=== PATIENT | female | born 1950 | race Caucasian/White ===

== ENCOUNTER 2016-12-02 10:08 | Outpatient (CLI) | payer MEDICARE, OTHER ==
--- NOTE | 2016-12-02 11:37 | MMO ---
BILATERAL SCREENING MAMMOGRAM: DATE: 12/02/16 HISTORY: 66-year-old female for screening mammography. COMPARISON: 10/23/15, 05/17/14, 04/29/13. FINDINGS: Bilateral MLO and CC views of the breasts show scattered fibroglandular breast tissue. Postsurgical changes are seen in the right breast and the right breast is smaller than the left. Benign-appearing calcifications are seen at the biopsy site of the breasts. There is no evidence of suspicious mass, suspicious cluster of microcalcifications, or area of architectural distortion. Interpretation of this mammogram was performed with the assistance of computer-aided detection. IMPRESSION: BIRADS 2: Benign Finding(s) Annual screening mammography is recommended. POS: DANNA
== END 2016-12-02 10:09 | disposition home or self-care (01) ==
LOC: SCSMAMMO 10:08
PROVIDERS: ATTEND Obstetrics & Gynecology
DX: Z12.31 Encounter for screening mammogram for malignant neoplasm of breast (principal)
CPT/HCPCS: 77067; G0202

== ENCOUNTER 2019-01-27 20:39 | Inpatient (IN) | payer MEDICARE, OTHER ==
[2019-01-27 21:09] LABS: #Monocytes 0.2 thou/uL (0.11-0.59); #Neutrophils 5.2 thou/uL (1.40-6.50); %Basophils 0.1 % (0.0-1.0); %Eosinophils 0.6 % (0.0-10.0); %Lymphocytes 15.3 % (21.0-51.0); %Monocytes 3.3 % (0.0-10.0); %Neutrophils 80.7 % (42.0-75.0); Hemoglobin 13.1 g/dL (12.0-16.0); Mean Corpuscular HGB CONC 33.9 g/dL (32.0-36.0); Mean Corpuscular Hemoglobin 32.3 pg (27.0-31.0); Mean Corpuscular Volume 95.4 fL (78.0-98.0); Mean Platelet Volume 7.1 fL (7.4-10.4); Platelet Count 223 thou/uL (130-400); RBC Distribution Width 12.1 % (11.5-14.5); Red Blood Cell (RBC) Count 4.05 mill/uL (4.20-5.40); White Blood Cell (WBC) Count 6.4 thou/uL (4.8-10.8)
[2019-01-27 21:14] LABS: INR-International Normal Ratio 1.2; PTT 36.4 SEC (22.9-36.1); Prothrombin Time 15.4 SEC (12.0-14.7)
[2019-01-27 21:28] LABS: ALT (SGPT) 19 U/L (8-55); AST (SGOT) 24 U/L (5-34); Albumin 3.3 g/dL (3.4-4.8); Alkaline Phosphatase 41 U/L (40-110); Anion Gap 11 mmol/L (10-20); BUN (Urea Nitrogen) 13 mg/dL (9.8-20.1); Bilirubin, Total 0.5 mg/dL (0.2-1.2); Calc. Creatinine Clearance 0 mL/min (70-130); Calcium 8.2 mg/dL (7.8-10.44); Carbon Dioxide 23 mmol/L (23-31); Chloride 107 mmol/L (98-107); Estimated GFR-MDRD 75; Globulin 2.9 g/dL (2.4-3.5); Glucose 99 mg/dL (80-115); Lipase 58 U/L (8-78); Potassium 3.6 mmol/L (3.5-5.1); Protein, Total 6.2 g/dL (6.0-8.3); Sodium 137 mmol/L (136-145)
[2019-01-27 21:53] LABS: CKMB 2.7 ng/mL (0-6.6)
--- NOTE | 2019-01-27 22:09 | PDOC.FPRHP ---
- Allergies/Adverse Reactions Allergies Allergy/AdvReac Type Severity Reaction Status Date / Time doxycycline Allergy Mild Vomiting Verified 01/27/19 22:10 - Home Medications Medication Instructions Recorded Confirmed Type Aspirin [Ecotrin] 81 mg PO DAILY 01/27/19 01/27/19 History Lansoprazole 15 tab PO DAILY 01/27/19 01/27/19 History Levothyroxine Sodium [Synthroid] 75 mcg PO DAILY 01/27/19 01/27/19 History - History PMHx: Hypothyroidism PSHx: Breast lumpectomy, cancerous. S/p chemo and radiation. (20yrs ago) FHx: Non-contributory Social: Denies alcohol, tobacco or illicit drug use. Allergic to Doxycycline. - Review of Systems General: reports: weight/appetite/sleep changes. denies: fever/chills, night sweats Eyes: denies: eye pain, vision changes ENT: denies: nasal congestion, rhinorrhea Respiratory: denies: cough, congestion, shortness of breath Cardiovascular: denies: chest pain, palpitation, edema, paroxysmal nocturnal dyspnea, orthopnea Gastrointestinal: reports: nausea, vomiting, diarrhea, abdominal pain. denies: constipation, GI bleeding Genitourinary: denies: incontinence, dysuria, polyuria Skin: denies: rashes, lesions, jaundice Musculoskeletal: denies: pain, tenderness, stiffness Neurological: denies: numbness, syncope, weakness - Vital signs BP: [] HR: [] RR: [] Tmax: [] Pox: []% on [] Wt: [] - Physical Exam Constitutional: NAD, awake, alert and oriented, well developed HEENT: normocephalic and atraumatic, PERRLA, EOMI, conjunctiva clear, grossly normal vision (wears glasses), grossly normal hearing, MMM Neck: supple, trachea midline FMR H&P: Results - Labs Result Diagrams: 01/27/19 20:57 01/27/19 20:57 Lab results: WBC 6.4 thou/uL (4.8-10.8) 01/27/19 20:57 Hgb 13.1 g/dL (12.0-16.0) 01/27/19 20:57 Hct 38.7 % (36.0-47.0) 01/27/19 20:57 MCV 95.4 fL (78.0-98.0) 01/27/19 20:57 Plt Count 223 thou/uL (130-400) 01/27/19 20:57 Neutrophils % 80.7 % (42.0-75.0) H 01/27/19 20:57 Sodium 137 mmol/L (136-145) 01/27/19 20:57 Potassium 3.6 mmol/L (3.5-5.1) 01/27/19 20:57 Chloride 107 mmol/L (98-107) 01/27/19 20:57 Carbon Dioxide 23 mmol/L (23-31) 01/27/19 20:57 BUN 13 mg/dL (9.8-20.1) 01/27/19 20:57 Creatinine 0.76 mg/dL (0.6-1.1) 01/27/19 20:57 Glucose 99 mg/dL (80-115) 01/27/19 20:57 Calcium 8.2 mg/dL (7.8-10.44) 01/27/19 20:57 Total Bilirubin 0.5 mg/dL (0.2-1.2) 01/27/19 20:57 AST 24 U/L (5-34) 01/27/19 20:57 ALT 19 U/L (8-55) 01/27/19 20:57 Alkaline Phosphatase 41 U/L (40-110) 01/27/19 20:57 CK-MB (CK-2) 2.7 ng/mL (0-6.6) 01/27/19 20:57 Serum Total Protein 6.2 g/dL (6.0-8.3) 01/27/19 20:57 Albumin 3.3 g/dL (3.4-4.8) L 01/27/19 20:57 Lipase 58 U/L (8-78) 01/27/19 20:57 FMR H&P: Upper Level - Plan Date/Time: 01/27/192205 PCP: [facility] HPI: Patient has been experiencing nausea, vomiting, and diarrhea that started 1am last night. This morning she continued to have symptoms and began to feel dehydrated so she went to the ED in [place]. She has history of diverticulitis and believed her symptoms were originally related to that. She denies CP on exertion, cough, ,or SOB. She denies chest pain, but was having pain in her epigastric region. Currently feeling minor "gas pain" in her abdomen. She states that the zofran and IV fluids resolved her symptoms. She has no significant past medical history except for hypothyroidism. Recently saw PCP for annual exam and was in good health. PMH: Hypothyroid, Breast Cancer PSH: Lumpectomy 99 Meds: see chart Allergies: doxycycline Soc Hx: no MARLEN Fm hx: denies fm hx of heart disease REVIEW OF SYSTEMS: Gen: no fever, chills, or sweats Neuro: denies headache Eyes: no visual changes ENT: no hearing changes, no sore throat, no congestion Resp: denies cough, SOB Card: denies murmurs, rubs, gallups GI: see hpi Heme: no easy bruising/bleeding, no blood thinners Skin: no rash, no erythema Vitals: BP: 104/50, MAP: 68, Pulse: 73, Resp: 20, Temp: 99.2 (Oral), Pain: 0, O2 sat: 94 on (Room Air), Time: 01/27/2019 20:42. PHYSICAL EXAMINATION: General: NAD, alert and oriented x3 HEENT: PERRLA, EOMI, normal sclera, oropharynx without erythema or exudate Neck: Supple. Full ROM. Heart/Cardiovascular System: RRR, Cap refill < 3 seconds, no rub, no murmur Lungs/Respiratory System: CTA-B, no resp distress Abdomen/Gastro-Intestinal System: no abdominal tenderness, normal bowel sounds Extremities: Warm extremities. Trace edema Neuro: No gross deficits appreciated. CN 2-12 grossly intact Psychiatry: Awake, Alert and cooperative with exam Skin: No lesions, rashes, or ulcers Musculoskeletal: Full ROM A/P: # NSTEMI - Trop 0.37-> 0.48 -> 0.56, Cr 0.78 - Therapeutic lovenox at 1856 at [facility] - EKG t-flattening V3-6, no ST changes, or q wave - HEART: 5 - AM lipid panel - Has not seen mobile device engineer in past, requests Rianna # Hypothyroidism - home meds Fluids: NS Code: full PPx: Lovenox Dispo: 1-2 days
[2019-01-27] MEDS ORDERED: Nitroglycerin 0.4 MG TAB (25 Tab Bottle) SL PRN (22:40)
[2019-01-28 00:13] LABS: Critical Call Chem Troponin I RESULT DECREASING; Troponin I 0.438 ng/mL (< 0.028)
[2019-01-28] MEDS: Sodium Chloride 0.9% 1,000 ML IV SCH ×3 (01:27→13:20)
[2019-01-28] MEDS: Acetaminophen 325 MG TAB PO PRN (01:33)
[2019-01-28 01:56] VITALS: BMI 30.2
[2019-01-28 02:57] LABS: #Basophils 0.1 thou/uL (0.0-0.2); #Monocytes 0.3 thou/uL (0.11-0.59); #Neutrophils 3.6 thou/uL (1.40-6.50); %Basophils 1.2 % (0.0-1.0); %Eosinophils 0.8 % (0.0-10.0); %Lymphocytes 19.5 % (21.0-51.0); %Monocytes 5.3 % (0.0-10.0); %Neutrophils 73.3 % (42.0-75.0); Hemoglobin 13.1 g/dL (12.0-16.0); Mean Corpuscular HGB CONC 34.2 g/dL (32.0-36.0); Mean Corpuscular Hemoglobin 32.6 pg (27.0-31.0); Mean Corpuscular Volume 95.4 fL (78.0-98.0); Mean Platelet Volume 6.9 fL (7.4-10.4); Platelet Count 213 thou/uL (130-400); RBC Distribution Width 12.1 % (11.5-14.5); Red Blood Cell (RBC) Count 4.02 mill/uL (4.20-5.40); White Blood Cell (WBC) Count 4.9 thou/uL (4.8-10.8)
[2019-01-28 03:24] LABS: Anion Gap 10 mmol/L (10-20); BUN (Urea Nitrogen) 13 mg/dL (9.8-20.1); Calc. Creatinine Clearance 94 mL/min (70-130); Calcium 8.4 mg/dL (7.8-10.44); Carbon Dioxide 26 mmol/L (23-31); Cardiac Risk 3.7 (Less than 4.5); Chloride 107 mmol/L (98-107); Cholesterol 132 mg/dl (< 200 Desired); Estimated GFR-MDRD 74; Glucose 95 mg/dL (80-115); HDL Cholesterol 36 mg/dL (>60 Neg Risk); LDL Cholesterol, Calculated 81 mg/dL; Potassium 3.3 mmol/L (3.5-5.1); Sodium 140 mmol/L (136-145); Triglycerides 76 mg/dL (Less than 150)
[2019-01-28 03:36] LABS: Critical Call Chem Troponin I RESULT DECREASING; Troponin I 0.409 ng/mL (< 0.028)
[2019-01-28] MEDS: Levothyroxine Sodium 75 MCG TAB PO SCH (05:39)
[2019-01-28] MEDS: Enoxaparin Sodium 100 MG/ML SYRINGE SC SCH ×2 (06:33→18:44)
[2019-01-28] MEDS ORDERED: Potassium Chloride 40 MEQ in Premix Bag 1 BAG IVPB ONE (06:54)
[2019-01-28 07:58] LABS: Hemoglobin A1c 5.4 % (4.0-6.0)
[2019-01-28] MEDS: Aspirin 81 mg Enteric Coated Tablet PO SCH (08:39)
[2019-01-28] MEDS: Potassium Chloride 20 MEQ in Premix Bag 1 BAG IVPB SCH ×2 (08:40→11:17)
[2019-01-28] MEDS ORDERED: Aspirin 325 mg Enteric Coated Tablet PO SCH (09:00)
--- NOTE | 2019-01-28 09:14 | PDOC.FM ---
Addendum entered and electronically signed by Britney Leroy MD 01/28/19 11:23 : A/P: -Not type I but type II NSTEMI Addendum entered and electronically signed by Britney Leroy MD 01/28/19 10:47 : Addendum to plan: NSTEMI -th lovenox Original Note: - Subjective Subjective: Chest pain is resolved. No nausea/vomiting. Feels well. - Objective MAR Reviewed: Yes Vital Signs & Weight: Vital Signs (12 hours) Temp Pulse Resp BP Pulse Ox 01/28/19 03:09 98 F 66 14 93/51 L 92 L 01/28/19 01:05 98 01/28/19 00:55 98.3 F 69 20 99/55 L 98 Weight Weight 87.498 kg I&O: 01/27/19 01/28/19 01/29/19 06:59 06:59 06:59 Intake Total 720 Output Total 200 Balance 520 Result Diagrams: 01/28/19 02:49 01/28/19 02:49 Phys Exam - Physical Examination Constitutional: NAD HEENT: PERRLA, moist MMs Respiratory: no wheezing, clear to auscultation bilateral Cardiovascular: RRR, no significant murmur Gastrointestinal: soft, non-tender Musculoskeletal: no edema Neurological: non-focal, moves all 4 limbs Dx/Plan (1) NSTEMI (non-ST elevated myocardial infarction) Code(s): I21.4 - NON-ST ELEVATION (NSTEMI) MYOCARDIAL INFARCTION Status: Acute (2) Hypothyroidism Code(s): E03.9 - HYPOTHYROIDISM, UNSPECIFIED Status: Acute - Plan Plan: NSTEMI, Type I -New T wave changes in inferolateral leads, trops 0.43 -> 0.40 -Patient asx, stable -Cardiology on board, further recs appreciated -NPO in anticipation of further testing -SL nitrostat PRN, ASA, statin Hypothyroidism -continue home meds dvt ppx: lovenox Dispo: >[address] Pabon Addendum - Attending - Attending Attestation Date/Time: 01/28/19 8220 I personally evaluated the patient and discussed the management with Dr. Leroy I agree with the History, Examination, Assessment and Plan documented above with any addition or exceptions noted below.Patient for further evaluation by Cardiology appreciate recommendations. Patient and family aware of plans.
[2019-01-28] MEDS ORDERED: ADENOSINE 60 MG/20 ML VIAL ONE (16:26)
--- NOTE | 2019-01-28 18:39 | NM ---
NM Cardiac Stress W EF WF History: Chest pain Comparison: None. Findings: Stress and rest performed after the intravenous administration of 29.4 and 10.5 mCi technet ium 99m sestamibi, respectively. There is a small lateral wall scar with low-grade obdulia-infarct ischemia. There is mild hypokinesia of the lateral wall. Adequate left ventricular uptake of radiotracer. The calculated ejection fraction is 56%. Impression: Small left lateral wall scar with low-grade obdulia-infarct ischemic change and mild lateral wall hypokinesia.
--- NOTE | 2019-01-28 19:09 | CON ---
DATE OF CONSULTATION: 01/28/2019 INDICATION FOR CONSULTATION: A 68-year-old female with indeterminate cardiac enzymes with a history of nausea, vomiting, and diarrhea. HISTORY OF PRESENT ILLNESS: This very unfortunate 68-year-old female has had bouts of diverticulitis in the past. She woke the night before last having some abdominal pain and had diarrhea. Then, she developed some chest tightness or chest heaviness and had some nausea and vomiting. She then presented to the emergency room, and cardiac enzymes were obtained. She has had 5 sets of cardiac enzymes done so for. The first one was 0.37. She did peak up to 0.56 and is back down to 0.049. This appears to be a [id number] elevation myocardial infarction, most likely type 2 myocardial infarction which is associated with demand ischemia, most likely associated with her nausea, vomiting, and diarrhea. She has had no previous cardiac history in the past. She has no history of hypertension, diabetes, or hypercholesterolemia. She did smoke in the past, but stopped many many years ago. She smoked about a half a pack a day from the age of 16 to 26. She did have 1 brother, who had myocardial infarction in his 50s, and also, her mother had some history of heart disease, but at age 83, she had some chest tightness or pain, but was undiagnosed as to exactly what she had. So, this lady has a history of these flare-ups with her diverticulitis about 2 to 3 times a year. Otherwise, she has remained relatively healthy. She is able to walk for 2 miles a day without symptoms. Her medications did not indicate she was on any medicines prior to admission for any cardiac problems. PAST MEDICAL HISTORY: Significant for hypothyroidism. She has a history of herpes zoster in the past. She has had breast cancer. She had a lumpectomy 20 years ago. She had a history of chemo and radiation therapy. She has a history of diverticulitis. She has the pain occasionally in the left lower quadrant. FAMILY HISTORY: Noncontributory except for what is noted in the history above. SOCIAL HISTORY: No history of alcohol or tobacco abuse. She continues to exercise. 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 ALLERGIES: SHE IS ALLERGIC TO DOXYCYCLINE. MEDICATIONS: Her medications at home included Synthroid as well as aspirin, and I believe she also was taking occasional H2 blockers for her possible reflux. REVIEW OF SYSTEMS: A 12-point review of systems is unremarkable except for what was noted in the history of present illness. PHYSICAL EXAMINATION: GENERAL: Reveals a well-developed, well-nourished female, who is in no acute distress. VITAL SIGNS: Her blood pressure is 93/51. She is afebrile. Heart rate 66 and regular. O2 saturation 92% with respiratory rate of 16. HEENT: Shows the head to be normocephalic and atraumatic. NECK: Carotid pulses are present. There were no bruits. CHEST: Clear to auscultation without rales, rhonchi, or wheezing. CARDIOVASCULAR: Reveals a regular rate and rhythm with normal S1 and S2. There is no S3 or S4. There were no significant murmurs, heaves, thrills, bruits, or rubs noted. ABDOMEN: She does have some mild tenderness in the left lower quadrant. EXTREMITIES: Otherwise, pedal pulses are present. There is no lower extremity edema. NEUROLOGIC: The patient appears to be fully intact. There were no other significant abnormalities. SKIN: Warm and dry. IMPRESSION: 1. Elderly female with an episode of diverticulosis associated with nausea and vomiting, but did have some chest discomfort and indeterminate cardiac enzymes. Given her age, we will proceed with echocardiogram for evaluation of left ventricular systolic function. We would also advise stress testing in this lady who did have some chest discomfort. She has almost no risk factors for coronary artery disease except some history of tobacco abuse over 20 years ago. She does remain active. It is unlikely she has significant coronary artery disease, and she is able to walk 2 miles a day without symptoms. 2. History of hypothyroidism. This will be continued to be treated by the [facility]. 3. History of diverticulosis. This also will be treated by the primary service. Job ID: [id number]
[2019-01-28] MEDS: Atorvastatin Calcium 40 MG TAB PO SCH (20:23)
[2019-01-28] MEDS ORDERED: Atorvastatin Calcium 40 MG TAB PO SCH (21:00)
[2019-01-28] MEDS: Ondansetron PF 4 MG/2 ML Vial IVP PRN (22:09)
[2019-01-29] MEDS: Sodium Chloride 0.9% 1,000 ML IV SCH ×2 (03:25→14:32)
[2019-01-29] MEDS ORDERED: Mag-Al 1200 mg/1200 mg/30 ML UDCUP PO SCH (04:30)
--- NOTE | 2019-01-29 05:25 | PDOC.FM ---
- Subjective Subjective: NAEO. Had episode of "reflux" pain last night, improved with maalox. No chest pain/pressure right now. No complaints or concerns. No n/v, no abd pain - Objective MAR Reviewed: Yes Vital Signs & Weight: Vital Signs (12 hours) Temp Pulse Resp BP Pulse Ox 01/29/19 03:34 98.9 F 62 16 119/58 L 92 L 01/28/19 20:00 96.6 F L 61 20 133/65 96 01/28/19 18:00 97.8 F 66 18 136/67 98 Weight Weight 88.541 kg I&O: 01/27/19 01/28/19 01/29/19 06:59 06:59 06:59 Intake Total 1960 Output Total 1800 Balance 160 Result Diagrams: 01/28/19 02:49 01/28/19 02:49 Phys Exam - Physical Examination Constitutional: NAD HEENT: PERRLA, TM's clear Respiratory: no wheezing, clear to auscultation bilateral Cardiovascular: RRR, no significant murmur Gastrointestinal: soft Musculoskeletal: no edema Neurological: non-focal, moves all 4 limbs Psychiatric: normal affect, A&O x 3 Skin: cap refill <2 seconds Dx/Plan (1) NSTEMI (non-ST elevated myocardial infarction) Code(s): I21.4 - NON-ST ELEVATION (NSTEMI) MYOCARDIAL INFARCTION Status: Acute (2) Hypothyroidism Code(s): E03.9 - HYPOTHYROIDISM, UNSPECIFIED Status: Acute - Plan Plan: NSTEMI -New T wave changes in inferolateral leads from admission to this morning- previously T wave inversions in III, avF now diffuse.Pt with no pain currentl. -NMST: Small left lateral wall scar with low grade obdulia infarct ischemic change & mild lateral wall hypokinesia. Part 2 to be scheduled today however will touch base with cardiology-in light of new T wave changes may need consideration of cardiac cath -Cards on board, recs appreciated -Th lovenox, SL nitrostat PRN, ASA, statin Hypothyroidism -continue home meds dvt ppx: th. lovenox Dispo: >[address] Palumbo Addendum - Attending - Attending Attestation Date/Time: 01/29/19 2259 I personally evaluated the patient and discussed the management with Dr. Leroy. I agree with the History, Examination, Assessment and Plan documented above with any addition or exceptions noted below. Patient with with suspected NSTEMI type 2 due to acute illness. She is currently having some chest discomfort that she has not had previously. She is undergoing stress testing per Cardiology. Will reach out and discuss with them. She also likely has diverticulitis, mild, but she does report some improvement in pain and no diarrhea since yesterday. Continue to monitor and await further cardiology recs after stress result.
[2019-01-29] MEDS: Levothyroxine Sodium 75 MCG TAB PO SCH (06:23)
[2019-01-29] MEDS: Enoxaparin Sodium 100 MG/ML SYRINGE SC SCH ×3 (07:16→20:10)
[2019-01-29 07:58] LABS: CKMB 5.1 ng/mL (0-6.6)
[2019-01-29] MEDS: Aspirin 81 mg Enteric Coated Tablet PO SCH (09:25)
--- NOTE | 2019-01-29 15:44 | PDOC.CPN ---
- Subjective Date: 01/29/19 Time: 15:48 Interval history: The pt seen and examined. No overnight events. No cardiac complaints. - Objective Allergies/Adverse Reactions: Allergies Allergy/AdvReac Type Severity Reaction Status Date / Time doxycycline Allergy Mild Vomiting Verified 01/27/19 22:10 Visit Medications: Current Medications Acetaminophen (Tylenol) 650 mg PO Q4H PRN PRN Reason: Headache/Fever/Mild Pain (1-3) Last Admin: 01/28/19 01:33 Dose: 650 mg Aspirin (Ecotrin) 81 mg PO DAILY [facility] Last Admin: 01/29/19 09:25 Dose: 81 mg Atorvastatin Calcium (Lipitor) 80 mg PO HS [facility] Last Admin: 01/28/19 20:23 Dose: 80 mg Enoxaparin Sodium (Lovenox) 90 mg SC Q12HR [facility] Sodium Chloride (Normal Saline 0.9%) 1,000 mls @ 100 mls/hr IV .Q10H [facility] Last Admin: 01/29/19 14:32 Dose: 1,000 mls Levothyroxine Sodium (Synthroid) 75 mcg PO 0600 [facility] Last Admin: 01/29/19 06:23 Dose: 75 mcg Nitroglycerin (Nitrostat) 0.4 mg SL Q5MIN PRN PRN Reason: Chest Pain Ondansetron HCl (Zofran) 4 mg IVP Q6H PRN PRN Reason: Nausea/Vomiting Last Admin: 01/28/19 22:09 Dose: 4 mg Pantoprazole Sodium (Protonix) 40 mg PO DAILY [facility] Last Admin: 01/29/19 09:25 Dose: 40 mg Sodium Chloride (Flush - Normal Saline) 10 ml IVF PRN PRN PRN Reason: Saline Flush Vital Signs & Weight: Vital Signs Temp Pulse Resp BP Pulse Ox 01/29/19 15:28 97.7 F 52 L 16 131/59 L 98 01/29/19 11:34 97.9 F 57 L 16 123/72 98 01/29/19 07:15 98.1 F 59 L 16 123/63 96 Weight 195 lb 3.2 oz - Physical Exam General: alert & oriented x3 HEENT: mucus membranes moist Neck: supple neck Cardiac: regular rate and rhythm, S1/S2 Lungs: clear to auscultation Neuro: cranial nerve 2-12 intact Skin: clear Musculoskeletal: normal range of motion - Labs Result Diagrams: 01/28/19 02:49 01/28/19 02:49 Troponin/CKMB CK-MB (CK-2) 5.1 ng/mL (0-6.6) 01/29/19 06:57 Troponin I 0.383 ng/mL (< 0.028) H* 01/29/19 06:57 - Telemetry Sinus rhythms and dysrhythmias: sinus rhythm - Assessment/Plan Assessment/Plan: 1. Chest pain with abnormal stress test result - possible LHC on Thursday; will start NTG patch for intermittent chest tightness. On ASA and Statin 2. Hypothyroidism 3. hx of Breast cancer with lumpectomy and chemo and radiation 4. Diverticulitis MAR reviewed Pt. seen and eval. by me. I agree with the A/P by the PERFORMANCE IMPROVEMENT CONSULTANT. Chest clear. RRR. marcymays
[2019-01-29] MEDS ORDERED: Nitroglycerin 2% Ointment 1 INCH/1 GM Packet TOP SCH (16:30)
[2019-01-29] MEDS: Atorvastatin Calcium 40 MG TAB PO SCH (20:10)
[2019-01-29] MEDS: Nitroglycerin 2% Ointment 1 INCH/1 GM Packet TOP SCH (21:45)
[2019-01-30] MEDS: Ondansetron PF 4 MG/2 ML Vial IVP PRN (03:30)
[2019-01-30] MEDS: Acetaminophen 325 MG TAB PO PRN (03:36)
[2019-01-30] MEDS: Nitroglycerin 2% Ointment 1 INCH/1 GM Packet TOP SCH ×3 (05:43→21:18)
[2019-01-30] MEDS: Levothyroxine Sodium 75 MCG TAB PO SCH (05:43)
--- NOTE | 2019-01-30 06:29 | PDOC.FM ---
- Subjective Subjective: NAEO. Chest discomfort/reflux episodes controlled with NTG patch. Able to eat apple sauce yesterday with no issues. Taking it slow. Denies diarrhea/nausea/abd pain - Objective MAR Reviewed: Yes Vital Signs & Weight: Vital Signs (12 hours) Temp Pulse Resp BP Pulse Ox 01/30/19 04:00 97.6 F 54 L 18 127/60 96 01/29/19 19:09 98.5 F 52 L 18 129/62 94 L Weight Weight 86.228 kg I&O: 01/28/19 01/29/19 01/30/19 06:59 06:59 06:59 Intake Total 1960 1490 Output Total 1800 Balance 160 1490 Result Diagrams: 01/28/19 02:49 01/28/19 02:49 Phys Exam - Physical Examination Constitutional: NAD HEENT: PERRLA, moist MMs Respiratory: no wheezing, clear to auscultation bilateral Cardiovascular: RRR, no significant murmur Gastrointestinal: soft, non-tender, no distention Musculoskeletal: no edema Neurological: non-focal, moves all 4 limbs Psychiatric: normal affect, A&O x 3 Dx/Plan (1) NSTEMI (non-ST elevated myocardial infarction) Code(s): I21.4 - NON-ST ELEVATION (NSTEMI) MYOCARDIAL INFARCTION Status: Acute (2) Hypothyroidism Code(s): E03.9 - HYPOTHYROIDISM, UNSPECIFIED Status: Acute (3) Diverticulitis Code(s): K57.92 - DVTRCLI OF INTEST, PART UNSP, W/O PERF OR ABSCESS W/O BLEED Status: Acute - Plan Plan: NSTEMI, type 2 -NMST: Small left lateral wall scar with low grade obdulia infarct ischemic change & mild lateral wall hypokinesia. -TTE: WNL -Th lovenox, SL nitrostat PRN, ASA, statin, NTG patch for intermittent chest discomfort -Cards on board, plan for [facility] on Thursday Diverticulitis -Clinically improved, no sxs thus no abx at this time but can consider if worsens -ADAT Hypothyroidism -continue home meds Hx of breast lumpectomy with radiation dvt ppx: th. lovenox Dispo: >[address] Palumbo Addendum - Attending - Attending Attestation Date/Time: 01/30/19 9967 I personally evaluated the patient and discussed the management with Dr. Leroy. I agree with the History, Examination, Assessment and Plan documented above with any addition or exceptions noted below. Patient continues to have intermittent chest discomfort. She will undergo LHC tomorrow due to abnormal stress testing. Her diverticulitis seems improved, no diarrhea, no pain, and tolerating GI soft well.
[2019-01-30] MEDS: Enoxaparin Sodium 100 MG/ML SYRINGE SC SCH ×2 (08:42→21:19)
[2019-01-30] MEDS: Aspirin 81 mg Enteric Coated Tablet PO SCH (08:42)
--- NOTE | 2019-01-30 17:21 | PDOC.CPN ---
- Subjective Date: 01/30/19 Time: 17:22 Interval history: The pt seen and examined. No overnight events. No Cardiac complaints. - Objective Allergies/Adverse Reactions: Allergies Allergy/AdvReac Type Severity Reaction Status Date / Time doxycycline Allergy Mild Vomiting Verified 01/27/19 22:10 Visit Medications: Current Medications Acetaminophen (Tylenol) 650 mg PO Q4H PRN PRN Reason: Headache/Fever/Mild Pain (1-3) Last Admin: 01/30/19 03:36 Dose: 650 mg Aspirin (Ecotrin) 81 mg PO DAILY [facility] Last Admin: 01/30/19 08:42 Dose: 81 mg Atorvastatin Calcium (Lipitor) 80 mg PO HS [facility] Last Admin: 01/29/19 20:10 Dose: 80 mg Enoxaparin Sodium (Lovenox) 90 mg SC Q12HR [facility] Last Admin: 01/30/19 08:42 Dose: 90 mg Levothyroxine Sodium (Synthroid) 75 mcg PO 0600 [facility] Last Admin: 01/30/19 05:43 Dose: 75 mcg Miscellaneous Information (Communication Order-Pharmacy) 0 each FS ONE [facility] Nitroglycerin (Nitrostat) 0.4 mg SL Q5MIN PRN PRN Reason: Chest Pain Last Admin: 01/30/19 03:36 Dose: 0.4 mg Nitroglycerin (Nitro-Bid 2% Ointment) 0.5 inch TOP Q8HR [facility] Last Admin: 01/30/19 13:41 Dose: 0.5 inch Ondansetron HCl (Zofran) 4 mg IVP Q6H PRN PRN Reason: Nausea/Vomiting Last Admin: 01/30/19 03:30 Dose: 4 mg Pantoprazole Sodium (Protonix) 40 mg PO DAILY [facility] Last Admin: 01/30/19 08:42 Dose: 40 mg Sodium Chloride (Flush - Normal Saline) 10 ml IVF PRN PRN PRN Reason: Saline Flush Vital Signs & Weight: Vital Signs Temp Pulse Resp BP Pulse Ox 01/30/19 15:10 98.0 F 67 14 138/71 97 01/30/19 11:59 97.2 F L 55 L 16 127/64 99 01/30/19 07:39 97.6 F 52 L 18 117/59 L 96 Weight 190 lb 1.6 oz - Physical Exam General: alert & oriented x3 HEENT: mucus membranes moist Neck: supple neck Cardiac: regular rate and rhythm, S1/S2 Lungs: clear to auscultation Abdomen: unremarkable Extremities: no cyanosis Skin: clear - Labs Result Diagrams: 01/28/19 02:49 01/28/19 02:49 Troponin/CKMB CK-MB (CK-2) 5.1 ng/mL (0-6.6) 01/29/19 06:57 Troponin I 0.383 ng/mL (< 0.028) H* 01/29/19 06:57 - Telemetry Sinus rhythms and dysrhythmias: sinus rhythm - Assessment/Plan Assessment/Plan: 1. Chest pain with abnormal stress test result - Plan for LHC on Thursday; will start NTG patch for intermittent chest tightness. On ASA and Statin 2. Hypothyroidism 3. hx of Breast cancer with lumpectomy and chemo and radiation 4. Diverticulitis MAR reviewed * Echo on 01/28/2019 with EF 55-60%
[2019-01-30] MEDS ORDERED: Communication Order-Pharmacy FS SCH (17:30)
[2019-01-30] MEDS: Atorvastatin Calcium 40 MG TAB PO SCH (21:18)
[2019-01-31] MEDS: Nitroglycerin 2% Ointment 1 INCH/1 GM Packet TOP SCH (05:43)
[2019-01-31] MEDS: Levothyroxine Sodium 75 MCG TAB PO SCH (05:44)
[2019-01-31] MEDS: Aspirin 81 mg Enteric Coated Tablet PO SCH (05:44)
--- NOTE | 2019-01-31 06:25 | PDOC.FM ---
Addendum entered and electronically signed by Britney Leroy MD 01/31/19 16:20 : Pt without urinary sxs-no indication to treat for lack of sxs also due to bradycardia will hold BB per dr. warren Original Note: - Subjective Subjective: No chest pain, comfortable Ate yesterday with no GI sxs - Objective MAR Reviewed: Yes Vital Signs & Weight: Vital Signs (12 hours) Temp Pulse Resp BP Pulse Ox 01/31/19 03:25 97.6 F 62 14 132/64 93 L 01/30/19 20:00 98.0 F 61 18 123/59 L 98 Weight Weight 85.304 kg I&O: 01/29/19 01/30/19 01/31/19 06:59 06:59 06:59 Intake Total 1960 1490 1460 Output Total 1800 2049 Balance 160 1490 -590 Result Diagrams: 01/31/19 09:18 01/31/19 09:18 Phys Exam - Physical Examination Constitutional: NAD HEENT: PERRLA, moist MMs Neck: full ROM Respiratory: no wheezing, clear to auscultation bilateral Cardiovascular: RRR, no significant murmur Gastrointestinal: soft, non-tender Musculoskeletal: no edema Neurological: non-focal, moves all 4 limbs Psychiatric: normal affect, A&O x 3 Dx/Plan (1) NSTEMI (non-ST elevated myocardial infarction) Code(s): I21.4 - NON-ST ELEVATION (NSTEMI) MYOCARDIAL INFARCTION Status: Acute (2) Hypothyroidism Code(s): E03.9 - HYPOTHYROIDISM, UNSPECIFIED Status: Acute (3) Diverticulitis Code(s): K57.92 - DVTRCLI OF INTEST, PART UNSP, W/O PERF OR ABSCESS W/O BLEED Status: Acute - Plan Plan: NSTEMI, type 2 -NMST: Small left lateral wall scar with low grade obdulia infarct ischemic change & mild lateral wall hypokinesia. -Troponins 0.4, TTE: WNL -Th lovenox, SL nitrostat PRN, ASA, statin, NTG patch for intermittent chest discomfort -Cards on board, plan for [facility] today Diverticulitis, Mild -Tolerating food -Abx if worsens Hypothyroidism -continue home meds Hx of breast lumpectomy with radiation dvt ppx: th. lovenox Dispo: >2 midnights, possible home today, pending cardiology clearance Discussed with Dr. Pelaez Addendum - Attending - Attending Attestation Date/Time: 01/31/19906 I personally evaluated the patient and discussed the management with Dr. Leroy I agree with the History, Examination, Assessment and Plan documented above with any addition or exceptions noted below. Admitted for NSTEMI. [facility] this AM. Awaiting results. Discussed bradycardia with patient. Denies previous hx. Asymptomatic. No causal agents. Will follow up with cards. Trend labs as needed. Possible home today if ok from cardiac standpoint. Bernardo
[2019-01-31] MEDS ORDERED: Heparin (Artline) 1,000 ML ONE (07:38)
[2019-01-31] MEDS ORDERED: Lidocaine 1% (PF) 30 ML VIAL ONE (07:38)
[2019-01-31] MEDS ORDERED: Nitroglycerin 100MG/250ML BOT 250 ML ONE (08:26)
[2019-01-31] MEDS ORDERED: Heparin 10,000 UNITS/1 ML VIAL ONE (08:26)
[2019-01-31] MEDS ORDERED: Verapamil 5 MG/2 ML VIAL ONE (08:26)
[2019-01-31] MEDS ORDERED: Midazolam HCl 2 mg/2 ml Vial ONE (08:35)
--- NOTE | 2019-01-31 09:09 | PDOC.CPN ---
- Subjective Date: 01/31/19 Time: 08:00 - Review of Systems General: denies: fever/chills Respiratory: denies: cough, congestion Cardiovascular: denies: chest pain Gastrointestinal: denies: nausea, vomiting, diarrhea Musculoskeletal: denies: pain Neurological: denies: numbness, weakness - Objective Allergies/Adverse Reactions: Allergies Allergy/AdvReac Type Severity Reaction Status Date / Time doxycycline Allergy Mild Vomiting Verified 01/27/19 22:10 Visit Medications: Current Medications Acetaminophen (Tylenol) 650 mg PO Q4H PRN PRN Reason: Headache/Fever/Mild Pain (1-3) Last Admin: 01/30/19 03:36 Dose: 650 mg Aspirin (Ecotrin) 81 mg PO DAILY [facility] Last Admin: 01/31/19 05:44 Dose: 81 mg Atorvastatin Calcium (Lipitor) 80 mg PO HS [facility] Last Admin: 01/30/19 21:18 Dose: 80 mg Levothyroxine Sodium (Synthroid) 75 mcg PO 0600 [facility] Last Admin: 01/31/19 05:44 Dose: 75 mcg Miscellaneous Information (Communication Order-Pharmacy) 0 each FS ONE [facility] Stop: 01/31/19 17:31 Nitroglycerin (Nitrostat) 0.4 mg SL Q5MIN PRN PRN Reason: Chest Pain Last Admin: 01/30/19 03:36 Dose: 0.4 mg Nitroglycerin (Nitro-Bid 2% Ointment) 0.5 inch TOP Q8HR [facility] Last Admin: 01/31/19 05:43 Dose: 0.5 inch Ondansetron HCl (Zofran) 4 mg IVP Q6H PRN PRN Reason: Nausea/Vomiting Last Admin: 01/30/19 03:30 Dose: 4 mg Pantoprazole Sodium (Protonix) 40 mg PO DAILY [facility] Last Admin: 01/31/19 05:44 Dose: 40 mg Sodium Chloride (Flush - Normal Saline) 10 ml IVF PRN PRN PRN Reason: Saline Flush Last Admin: 01/30/19 21:19 Dose: 10 ml Vital Signs & Weight: Vital Signs Temp Pulse Resp BP Pulse Ox 01/31/19 07:14 98 F 55 L 16 130/71 95 01/31/19 03:25 97.6 F 62 14 132/64 93 L Weight 188 lb 1 oz - Quality Measures CV meds: Beta Coleman: No (bradycardia), DIEGO/ARB: No (nl. LV), Statin: Yes, ASA : Yes - Physical Exam General: alert & oriented x3 Neck: supple neck, no JVD/HJR Cardiac: regular rate and rhythm, no murmur, bradycardia Lungs: clear to auscultation, no wheeze, rales, rhonchi Neuro: grossly intact Abdomen: unremarkable Extremities: no cyanosis, no edema Musculoskeletal: normal range of motion, no pain - Labs Result Diagrams: 01/28/19 02:49 01/28/19 02:49 Troponin/CKMB CK-MB (CK-2) 5.1 ng/mL (0-6.6) 01/29/19 06:57 Troponin I 0.383 ng/mL (< 0.028) H* 01/29/19 06:57 - Telemetry Sinus rhythms and dysrhythmias: sinus rhythm - Assessment/Plan Assessment/Plan: 1. Chest pain with abnormal stress test result - Plan for [facility] today; intermittent chest tightness. On ASA and Statin 2. Hypothyroidism 3. hx of Breast cancer with lumpectomy and chemo and radiation 4. Diverticulitis MAR reviewed * Echo on 01/28/2019 with EF 55-60% If no CAD then home later today. F/U with Medley in 1-2 months.
[2019-01-31] MEDS ORDERED: Acetaminophen/Codeine 30-300mg Tablet PO PRN ×2 (09:13)
[2019-01-31] MEDS ORDERED: Sodium Chloride 0.9% 200 ML IV PRN (09:13)
[2019-01-31] MEDS ORDERED: Nitroglycerin 0.4 MG TAB (25 Tab Bottle) SL PRN (09:13)
[2019-01-31 09:33] LABS: Hemoglobin 13.6 g/dL (12.0-16.0); Mean Corpuscular HGB CONC 34.1 g/dL (32.0-36.0); Mean Corpuscular Hemoglobin 32.3 pg (27.0-31.0); Mean Corpuscular Volume 94.8 fL (78.0-98.0); Platelet Count 257 thou/uL (130-400); RBC Distribution Width 11.8 % (11.5-14.5); Red Blood Cell (RBC) Count 4.21 mill/uL (4.20-5.40); White Blood Cell (WBC) Count 8.8 thou/uL (4.8-10.8)
[2019-01-31 09:34] LABS: #Lymphocytes 2.6 thou/uL (1.20-3.40); #Monocytes 0.7 thou/uL (0.11-0.59); #Neutrophils 5.4 thou/uL (1.40-6.50); %Basophils 0.5 % (0.0-1.0); %Eosinophils 1.2 % (0.0-10.0); %Lymphocytes 29.3 % (21.0-51.0); %Monocytes 7.6 % (0.0-10.0); %Neutrophils 61.5 % (42.0-75.0); Manual Diff?? NO
[2019-01-31 09:35] LABS: #Eosinphils 0.1 thou/uL (0.0-0.7)
[2019-01-31 11:12] LABS: Anion Gap 12 mmol/L (10-20); BUN (Urea Nitrogen) 7 mg/dL (9.8-20.1); Calc. Creatinine Clearance 92 mL/min (70-130); Carbon Dioxide 27 mmol/L (23-31); Chloride 104 mmol/L (98-107); Estimated GFR-MDRD 74; Glucose 83 mg/dL (80-115); Potassium 3.6 mmol/L (3.5-5.1); Sodium 139 mmol/L (136-145)
[2019-01-31] MEDS ORDERED: Iopamidol 370 76% 100 ML VIAL ONE (11:12)
[2019-01-31 15:12] VITALS: BP 132/67; TEMP 98.1
[2019-01-31] MEDS ORDERED: cefTRIAXone\\ROCEPHIN 1 GM in Sodium Chloride 0.9% 100 ML IVPB ONE (16:12)
--- NOTE | 2019-02-01 14:34 | DIS ---
DATE OF ADMISSION: 01/27/2019 DATE OF DISCHARGE: 01/31/2019 ADMITTING ATTENDING: Kd Goldsmith MD DISCHARGE ATTENDING: Carmela Pelaez MD CONSULTS: Cardiology, Dr. eMdley. PROCEDURES AND IMAGIN. Nuclear medicine stress test. Small left lateral wall scar with low-grade obdulia-infarct ischemia change and mild lateral wall hypokinesia. 2. Cardiac cath. Insignificant coronary artery disease. Mild plaque in proximal LAD and mid circumflex. No significant stenosis. EF 55% to 60%. 3. Transthoracic echo. LV size normal. Sinus bradycardia. Ejection fraction of 55% to 60%. PRIMARY DIAGNOSES: 1. Non-ST elevated myocardial infarction type 2. 2. Mild diverticulitis. 3. Uncomplicated urinary tract infection. SECONDARY DIAGNOSES: 1. Hypothyroidism. 2. History of breast lumpectomy, status post complete radiation course. DISCHARGE MEDICATIONS: 1. Synthroid 75 mcg p.o. daily. 2. Aspirin 81 mg p.o. daily. 3. Calcium D. 4. Tylenol. 5. Atorvastatin 80 mg p.o. at bedtime. 6. Protonix 40 mg p.o. daily. 7. Nitrostat 0.4 mg sublingual q.5 minutes p.r.n. for chest pain. 8. Macrobid 100 mg p.o. b.i.d. for 5 days. HISTORY OF PRESENT ILLNESS AND HOSPITAL COURSE: Ms. Lisbeth Iqbal is a pleasant 68-year-old female with past medical history of pulmonary hypertension, who presented to the ER with nausea, vomiting, diarrhea, and chest pressure. She was found to have positive troponins with T-wave inversions in the inferolateral leads. and was admitted for NSTEMI and started on therapeutic Lovenox and Cardiology was consulted. NM Stress test was abnormal. Subsequent catheterization revealed no evidence of significant stenosis or coronary artery disease which upon discussion with Dr. Medley was quite surprising given her typical anginal symptoms. There is clearly evidence of cardiac disease in regard to the positive troponins and the EKG changes, so there is no denying that there was some cardiac damage. It is possible that she may be having news intern coronary vasospasms causing her anginal like pain. It is uncertain what the etiology is. She was sent home on statin and Nitrostat and told to follow up with Dr. Medley in about 2 weeks. Discussed plan with patient and family. Symptom free upon discharge. DISPOSITION: Stable. DISCHARGE INSTRUCTIONS: 1. Location: Home. 2. Diet: Heart healthy. 3. Activity: Ad ellen as tolerated. FOLLOWUP: 1. Please follow up with Dr. Medley in 2 weeks. 2. Please complete antibiotic course for uncomplicated UTI. 3. Please follow up with your PCP, who is out of town within the next week. Job ID: [id number] MTDD
--- NOTE | 2019-02-01 17:36 | EKG ---
Test Reason : Blood Pressure : / mmHG Vent. Rate : 062 BPM Atrial Rate : 062 BPM P-R Int : 208 ms QRS Dur : 108 ms QT Int : 484 ms P-R-T Axes : 046 -40 224 degrees QTc Int : 491 ms Normal sinus rhythm Left axis deviation Septal infarct (cited on or before 27-JAN-2019) T wave abnormality, consider lateral ischemia Abnormal ECG When compared with ECG of 27-JAN-2019 20:53, (Unconfirmed) Serial changes of Septal infarct Present Confirmed by YURIY HAYES (2) on 02/01/2019 5:36:23 PM Referred By: Confirmed By:YURIY HAYES
--- NOTE | 2019-02-01 17:37 | EKG ---
Test Reason : Blood Pressure : / mmHG Vent. Rate : 070 BPM Atrial Rate : 070 BPM P-R Int : 196 ms QRS Dur : 106 ms QT Int : 454 ms P-R-T Axes : 047 -47 232 degrees QTc Int : 490 ms Normal sinus rhythm Left axis deviation Possible Anterolateral infarct (cited on or before 29-JAN-2019) Abnormal ECG When compared with ECG of 29-JAN-2019 04:33, (Unconfirmed) Serial changes of Anterior infarct Present Confirmed by YURIY HAYES (2) on 02/01/2019 5:36:29 PM Referred By: JEOVANNY Confirmed By:YURIY HAYES
--- NOTE | 2019-02-05 19:50 | EKG ---
Test Reason : Blood Pressure : / mmHG Vent. Rate : 072 BPM Atrial Rate : 072 BPM P-R Int : 174 ms QRS Dur : 096 ms QT Int : 366 ms P-R-T Axes : 023 -41 -32 degrees QTc Int : 400 ms Normal sinus rhythm Left axis deviation Septal infarct , age undetermined Abnormal ECG Confirmed by LEELEE BYERS D.O. ([id number]), magazine editor TATI CRUZ ([id number]) on 02/05/2019 7:48:55 PM Referred By: Confirmed By:LEELEE BYERS D.O.
== END 2019-01-31 17:09 | disposition home or self-care (01) | DRG 281 ==
LOC: ERS 20:39 → 2NO 21:43
PROVIDERS: ADMIT Family Medicine; ATTEND Family Medicine
PROC: 4A023N7 Measurement of Cardiac Sampling and Pressure, Left Heart, Percutaneous Approach (ICD-10-PCS; principal; 2019-01-27)
PROC: B2111ZZ Fluoroscopy of Multiple Coronary Arteries using Low Osmolar Contrast (ICD-10-PCS; 2019-01-27)
PROC: B2151ZZ Fluoroscopy of Left Heart using Low Osmolar Contrast (ICD-10-PCS; 2019-01-27)
DX: I21.4 Non-ST elevation (NSTEMI) myocardial infarction (principal); K57.92 Diverticulitis of intestine, part unspecified, without perforation or abscess without bleeding; N39.0 Urinary tract infection, site not specified; E03.9 Hypothyroidism, unspecified; Z85.3 Personal history of malignant neoplasm of breast; Z88.8 Allergy status to other drugs, medicaments and biological substances; I07.1 Rheumatic tricuspid insufficiency
CPT/HCPCS: 36415; 36416; 78452; 80048; 80053; 80061; 82553; 82565; 83036; 83690; 83735; 84443; 84484; 85025; 85520; 85610; 85730; 93005; 93010; 93017; 93306; 93458; 99152; 99153; A9500; C1769; J0153; J1644; J1650; J2001; J2250; J2405; J3480; Q9967